=== PATIENT | female | born 1970 | race Caucasian/White ===

== ENCOUNTER 2024-02-13 11:04 | Outpatient (OUT) | payer MEDICAID, SELFPAY ==
--- NOTE | 2024-02-13 11:13 | XR_ITS ---
The [address] [address] Patient Name: ELLIOTT MERLOS MRN: [id number] date: 1970 Sex: F Assigned Patient Location: [facility] Current Patient Location: Accession/Order Number: [id number] Exam Date: 02/13/2024 11:20 Report Date: 02/14/2024 06:38 At the request of: ELLIOTT CHERY Procedure: XR ribs LT 2V EXAMINATION: XR ribs LT 2V HISTORY: Rib Pain On Left Side COMPARISON: XR RIBS with PA chest left 02/04/2024 FINDINGS: LUNGS: No significant pulmonary parenchymal abnormalities. PLEURA: No pneumothorax, effusion, or pleural thickening. MEDIASTINUM: No visible mass or adenopathy. CARDIAC: No cardiomegaly or cardiac silhouette abnormality. RIBS: Normal. No significant arthropathy or acute abnormality. OTHER: Negative. XR/XR ribs LT 2V IMPRESSION: 1. No acute cardiopulmonary process. 2. No appreciable rib fracture. Electronically authenticated by: ZEYAD DAN Date: 02/14/2024 06:38
== END 2024-02-13 11:05 | disposition home or self-care (01) ==
LOC: RAD 11:09
PROVIDERS: PCP Nurse Practitioner Family; Visit Provider Nurse Practitioner Family
DX: R07.81 Pleurodynia (principal)
CPT/HCPCS: 71100